=== PATIENT | male | born 1950 | race Caucasian/White ===

== ENCOUNTER 2022-05-21 13:06 | Outpatient (CLI) | payer MEDICARE ==
--- NOTE | 2022-05-21 17:26 | XRAY Report ---
PROCEDURE: Toe(s) RT INDICATIONS: RIGHT 3RD TOE TECHNIQUE: 3 views of the third toe(s) acquired. COMPARISON: None FINDINGS: Bones: No fractures or dislocations. No suspicious bony lesions. Soft tissues: No suspicious soft tissue densities. IMPRESSION: No visualized acute fracture or dislocation. However, occult injury cannot be excluded. Recommend heri rt interval imaging follow-up in 7-10 days as clinically indicated for additional evaluation. Reviewed by: Nickie Blue MD on 05/21/2022 4:43 PM PST Approved by: Nickie Blue MD on 05/21/2022 4:43 PM [facility] Station ID: [id number]
== END 2022-05-21 13:09 | disposition home or self-care (01) ==
LOC: DI.S 13:06
PROVIDERS: ATTEND Physician Assistant
DX: L84 Corns and callosities (principal)